=== PATIENT | male | born 1940 | race Caucasian/White ===

== ENCOUNTER → 2017-04-25 | Outpatient (CLI) | payer OTHER | LOC: BHFA 12:00 | PROVIDERS: ATTEND Internal Medicine | DX: I35.9 Nonrheumatic aortic valve disorder, unspecified (principal); I05.9 Rheumatic mitral valve disease, unspecified ==

== ENCOUNTER → 2017-05-03 | Outpatient (CLI) | payer OTHER ==
[~2017-05-03] MED LIST: IOPAMIDOL (ISOVUE-370) 150 ML BTL IV ONE
== END ==
LOC: FIMAGING 13:45
PROVIDERS: ATTEND Thoracic Surgery (Cardiothoracic Vascular Surgery)
DX: K44.9 Diaphragmatic hernia without obstruction or gangrene (principal); K40.90 Unilateral inguinal hernia, without obstruction or gangrene, not specified as recurrent; I70.0 Atherosclerosis of aorta; I70.1 Atherosclerosis of renal artery; I77.1 Stricture of artery; I25.10 Atherosclerotic heart disease of native coronary artery without angina pectoris; J90 Pleural effusion, not elsewhere classified
CPT/HCPCS: 71275; 74174; Q9967

== ENCOUNTER 2017-05-07 23:04 | Inpatient (IN) | payer OTHER ==
--- NOTE | 2017-05-07 23:21 | EDPHY ---
H & P Stated Complaint: due for card cath tomorrow, due for tavr 3.6, worsening sob x 2 days Time Seen by Provider: 05/07/17 23:10 HPI/ROS: HPI CHIEF COMPLAINT: Shortness of breath HISTORY OF PRESENT ILLNESS: Patient very pleasant 69-year-old male who presents emergency room shortness of breath. Patient resides in [place]. Patient is followed by Dr. Waterman, who presents to the emergency room because he has been having worsening shortness of breath. Patient states that he staying at a local hotel as he is due to get a cardiac catheterization tomorrow to make sure does not have significant coronary artery disease before undergoing a TAVR. He typically wears 2-4 L nasal cannula of oxygen however does not have his oxygen locally here in his hotel he comes in with worsening shortness of breath or dyspnea on exertion. He is unable to lay flat. He denies any significant lower extremity edema. He denies any chest pain. Only complaint shortness of breath dyspnea on exertion and PND. Past Medical History: BPH, hypertension, aortic insufficiency Past Surgical History: aortic valve replacement Social History: Denies drugs alcohol tobacco products. Resides in [place]. Family History: Noncontributory CT surgeon: Dr. Columba ACOSTA REVIEW OF SYSTEMS: A comprehensive 10 point review of systems is otherwise negative aside from elements mentioned in the history of present illness. Exam Constitutional appears well nontoxic no acute distress triage nursing summary reviewed, vital signs reviewed, awake/alert. Eyes normal conjunctivae and sclera, EOMI, PERRLA. HENT normal inspection, atraumatic, moist mucus membranes, no epistaxis, neck supple/ no meningismus, no raccoon eyes. Respiratory decreased breath sounds bilaterally, somewhat labored, dyspnea on exertion, PND. Cardiovascular rate normal, regular rhythm, no edema, distal pulses normal. Gastrointestinal soft, non-tender, no rebound, no guarding, normal bowel sounds, no distension, no pulsatile mass. Genitourinary no CVA tenderness. Musculoskeletal no midline vertebral tenderness, full range of motion, no calf swelling, no tenderness of extremities, no meningismus, good pulses, neurovascularly intact. Skin pink, warm, & dry, no rash, skin atraumatic. Neurologic awake, alert and oriented x 3, AAOx3, moves all 4 extremities equally, motor intact, sensory intact, CN II-XII intact, normal cerebellar, normal vision, normal speech. Psychiatric normal mood/affect. Heme/Lymph/Immune no lymphadenopathy. Differential Diagnosis: Includes but is not limited to in a particular order aortic insufficiency, congestive heart failure, pulmonary edema, pneumonia, pneumothorax, decompensated heart failure, PE, HI Medical Decision Making: Plan for this patient full patient monitor IV establishment blood draw, obtain EKG and chest x-ray, placed on supplemental oxygen. Most likely admit the patient to the hospital is due for cardiac catheterization tomorrow. Re-evaluation: EKG interpretation by me on record in [facility] system. Impression time of EKG 2326, sinus rhythm rate of 95 first-degree AV block MN interval 236, feces present. Left anterior fascicular block, LVH, no ST elevation. 1213AM: Patient's elevated troponin elevated BNP, chest x-ray consistent with heart failure. I have ordered him 40 mg IV Lasix. He is hemodynamically stable without any chest pain at this time. Patient be admitted to PCU for decompensated heart failure. 1223AM: Spoke with Dr. Waterman, aware that the patient is being admitted. Spoke with the hospitalist service Dr. Hurd, agrees to admit this patient for decompensated heart failure. Source: Patient - Medical/Surgical History Hx Asthma: No Hx Chronic Respiratory Disease: No Hx Diabetes: No Hx Cardiac Disease: Yes Hx Renal Disease: No Hx Cirrhosis: No Hx Alcoholism: No Hx HIV/AIDS: No Hx Splenectomy or Spleen Trauma: No Other PMH: mitral and aortic valve replacement, hernia repair, bilat cataract surg, surg R shoulder, bph, hyperlipidemia - Social History Smoking Status: Former smoker Constitutional: Initial Vital Signs Temperature (C) 36.8 C 05/07/17 23:09 Heart Rate 51 L 05/07/17 23:09 Respiratory Rate 18 05/07/17 23:09 Blood Pressure 145/65 H 05/07/17 23:09 O2 Sat (%) 93 05/07/17 23:09 O2 Delivery Mode Nasal Cannula O2 (L/minute) 3 Allergies/Adverse Reactions: No Known Allergies Allergy (Verified 05/07/17 23:18) Home Medications: Medication Instructions Recorded Aspirin [Aspirin 81mg (*)] 81 mg PO DAILY 05/01/17 Furosemide [Lasix 20 MG (*)] 20 mg PO DAILY 05/01/17 [place]-3 Fatty Acids [Fish Oil 1000 1,000 mg PO DAILY 05/01/17 mg (*)] Potassium Cl [Klor-Con] 10 meq PO DAILY 05/01/17 Simvastatin [Zocor] 10 mg PO HS 05/01/17 Tamsulosin HCl [Flomax 0.4 MG (*)] 0.4 mg PO DAILY 05/01/17 Medical Decision Making - Data Points Laboratory Results: Laboratory Results 05/08/17 03:24 05/08/17 03:24 Medications Given: Pravastatin Sodium (Pravachol) 20 mg PO [facility] Stop: 11/04/17 20:59 Last Admin: 05/08/17 21:12 Dose: 20 mg Discontinued Medications Enoxaparin Sodium (Lovenox) 40 mg SC DAILY [facility] Stop: 11/04/17 08:59 Last Admin: 05/08/17 08:42 Dose: Not Given Furosemide (Lasix Injection) 40 mg IVP [facility] Stop: 05/08/17 00:13 Last Admin: 05/08/17 00:43 Dose: 40 mg Departure - Departure Disposition: [facility] Acute Clinical Impression: Acute decompensated heart failure Condition: Fair
--- NOTE | 2017-05-07 23:29 | CPEKG ---
Heart Rate: 95 RR Interval: 632 P-R Interval: 236 QRSD Interval: 92 QT Interval: 376 QTC Interval: 473 P [place]: 68 QRS [place]: -47 T Wave [place]: 95 EKG Severity - ABNORMAL ECG - EKG Impression: SINUS RHYTHM EKG Impression: PAIRED VENTRICULAR PREMATURE COMPLEXES EKG Impression: FIRST DEGREE AV BLOCK EKG Impression: LEFT ANTERIOR FASCICULAR BLOCK EKG Impression: LEFT VENTRICULAR HYPERTROPHY Electronically Signed By: Chapo Magana 08-May-2017 06:47:17
[2017-05-07 23:47] LABS: PLATELET COUNT 108 10^3/uL (150-400)
[2017-05-07 23:56] LABS: INR 1.02 (0.83-1.16); PROTIME(PATIENT) 13.6 SEC (12.0-15.0)
[2017-05-07 23:58] LABS: CREATINE KINASE 67 IU/L (0-224)
[2017-05-08] MEDS ORDERED: FUROSEMIDE 40 MG/4 ML VIAL IVP ONE (00:12)
[2017-05-08] MEDS ORDERED: ONDANSETRON 4 MG/2 ML VIAL IVP PRN (00:21)
[2017-05-08] MEDS ORDERED: ACETAMINOPHEN 325 MG TAB PO PRN (00:21)
[2017-05-08] MEDS ORDERED: ONDANSETRON DISINTEGRATING 4 MG TAB PO PRN (00:21)
--- NOTE | 2017-05-08 01:00 | PDGENHP ---
History and Physical - Chief Complaint Shortness of breath - History of Present Illness 77 yo M w/ hx of bioprosthetic MV and AV placed in 2010 presents with shortness of breath. Patient has had several months of progressive LUCIO. Over the last 3 days he has developed severe orthopnea that makes it difficult to sleep. Tonight the symptoms became so bothersome that he came to the ED for evaluation. Recent cardiac evaluation has revealed severe AR/AI of his bioprosthetic AV, which is likely responsible for heart failure symptoms seen today. He is currently undergoing TVAR evaluation, which may take place as soon as this coming week. He had a planned catheterization and BRITTANEY for tomorrow. History Information - Allergies/Home Medication List Allergies/Adverse Reactions: No Known Allergies Allergy (Verified 05/07/17 23:18) Home Medications: Aspirin [Aspirin 81mg (*)] 81 mg PO DAILY 05/01/17 [Last Taken Unknown] Furosemide [Lasix 20 MG (*)] 20 mg PO DAILY 05/01/17 [Last Taken Unknown] [place]-3 Fatty Acids [Fish Oil 1000 mg (*)] 1,000 mg PO DAILY 05/01/17 [Last Taken Unknown] Potassium Cl [Klor-Con] 10 meq PO DAILY 05/01/17 [Last Taken Unknown] Simvastatin [Zocor] 10 mg PO HS 05/01/17 [Last Taken Unknown] Tamsulosin HCl [Flomax 0.4 MG (*)] 0.4 mg PO DAILY 05/01/17 [Last Taken Unknown] I have personally reviewed and updated: family history, medical history - Past Medical History CHF Additional medical history: Pulmonary hypertension - Surgical History Additional surgical history: Bioprosthetic AV and MV replacement in 2010 - Family History Positive for: cancer - Social History Smoking Status: Former smoker Review of Systems Review of Systems: ROS: 10pt was reviewed & negative except for what was stated in HPI & below Physical Exam Physical Exam: Temp Pulse Resp BP Pulse Ox 36.8 C 51 L 18 145/65 H 93 05/07/17 23:09 05/07/17 23:09 05/07/17 23:09 05/07/17 23:09 05/07/17 23:09 Constitutional: no apparent distress, not in pain Eyes: PERRL, EOMI Ears, Nose, Mouth, Throat: moist mucous membranes, no oral mucosal ulcers Cardiovascular: regular rate and rhythym, systolic murmur, diastolic murmur, JVD (JVP 4 cm above clavicle at 60 degrees), No edema Respiratory: no respiratory distress, inspiratory crackles (Bibasilar) Gastrointestinal: normoactive bowel sounds, soft, non-tender abdomen Skin: warm, normal color Musculoskeletal: full muscle strength, no muscle tenderness Neurologic: AAOx3, CN II-XII Intact Psychiatric: interacting appropriately, not anxious Lab Data & Imaging Review 05/07/17 23:33 05/07/17 23:33 WBC 5.92 10^3/uL (3.80-9.50) 05/07/17 23: RBC 4.09 10^6/uL (4.40-6.38) L 05/07/17 23: Hgb 13.1 g/dL (13.7-17.5) L 05/07/17 23:33 Hct 39.2 % (40.0-51.0) L 05/07/17 23: MCV 95.8 fL (81.5-99.8) 05/07/17 23: MCH 32.0 pg (27.9-34.1) 05/07/17 23: MCHC 33.4 g/dL (32.4-36.7) 05/07/17 23: RDW 13.6 % (11.5-15.2) 05/07/17 23: Plt Count 108 10^3/uL (150-400) L 05/07/17 23: MPV 13.0 fL (8.7-11.7) H 05/07/17 23: Neut % (Auto) 67.2 % (39.3-74.2) 05/07/17 23: Lymph % (Auto) 23.3 % (15.0-45.0) 05/07/17 23: Barnes % (Auto) 5.7 % (4.5-13.0) 05/07/17 23:33 Eos % (Auto) 2.9 % (0.6-7.6) 05/07/17 23:33 Baso % (Auto) 0.7 % (0.3-1.7) 05/07/17 23: Nucleat RBC Rel Count 0.0 % (0.0-0.2) 05/07/17 23:33 Absolute Neuts (auto) 3.98 10^3/uL (1.70-6.50) 05/07/17 23:33 Absolute Lymphs (auto) 1.38 10^3/uL (1.00-3.00) 05/07/17 23:33 Absolute Monos (auto) 0.34 10^3/uL (0.30-0.80) 05/07/17 23: Absolute Eos (auto) 0.17 10^3/uL (0.03-0.40) 05/07/17 23:33 Absolute Basos (auto) 0.04 10^3/uL (0.02-0.10) 05/07/17 23: Absolute Nucleated RBC 0.00 10^3/uL (0-0.01) 05/07/17 23: Immature Gran % 0.2 % (0.0-1.1) 05/07/17 23: Immature Gran # 0.01 10^3/uL (0.00-0.10) 05/07/17 23:33 PT 13.6 SEC (12.0-15.0) 05/07/17 23: INR 1.02 (0.83-1.16) 05/07/17 23:33 APTT 26.8 SEC (23.0-38.0) 05/07/17 23:33 Sodium 141 mEq/L (135-145) 05/07/17 23: Potassium 4.3 mEq/L (3.5-5.2) 05/07/17 23: Chloride 108 mEq/L (97-110) 05/07/17 23: Carbon Dioxide 24 mEq/l (22-31) 05/07/17 23:33 Anion Gap 9 mEq/L (8-16) 05/07/17 23:33 BUN 25 mg/dL (7-23) H 05/07/17 23:33 Creatinine 0.9 mg/dL (0.7-1.3) 05/07/17 23:33 Estimated GFR > 60 05/07/17 23:33 Glucose 105 mg/dL (70-100) H 05/07/17 23:33 Calcium 9.4 mg/dL (8.5-10.4) 05/07/17 23:33 Magnesium 2.1 mg/dL (1.6-2.3) 05/07/17 23:33 Total Bilirubin 0.6 mg/dL (0.1-1.4) 05/07/17 23:33 Conjugated Bilirubin 0.3 mg/dL (0.0-0.5) 05/07/17 23:33 Unconjugated Bilirubin 0.3 mg/dL (0.0-1.1) 05/07/17 23:33 AST 34 IU/L (17-59) 05/07/17 23:33 ALT 52 IU/L (21-72) 05/07/17 23:33 Alkaline Phosphatase 85 IU/L (38-126) 05/07/17 23:33 Creatine Kinase 67 IU/L (0-224) 05/07/17 23:33 CK-MB (CK-2) Fraction 2.24 ng/mL (0.00-3.19) 05/07/17 23:33 Troponin I 0.046 ng/mL (0.000-0.034) H 05/07/17 23:33 NT-Pro-B Natriuret Pep 7490 pg/mL (0-450) H 05/07/17 23:33 Total Protein 6.4 g/dL (6.3-8.2) 05/07/17 23:33 Albumin 3.9 g/dL (3.5-5.0) 05/07/17 23:33 Imaging Review: Imaging Impressions Chest X-Ray 05/07/17 23:21 Impression: Mild congestive heart failure. Visualized and Interpreted Chest x-ray results: Yes Visualized and Interpreted EKG results: Yes EKG additional interpertation: LAFB, PVCs, NSR Assessment & Plan Assessment: 77 yo M w/ hx of bioprosthetic MV and AV with recently developed severe /AI presents with decompensated heart failure. Plan: 1. Acute on chronic decompensated heart failure - I suspect his symptoms (LUCIO, orthopnea) are mostly due to his aortic valve disease (severe /AI). He was recently started on furosemide 20 mg PO qD by Dr. Waterman but his symptoms have progressed regardless. He does have some signs of volume overload (vascular congestion on CXR, elevated JVP) but overall this appears mild and it seems he has a narrow functional window in terms of volume due to his poor valve function. - S/p furosemide 40 mg IV x1 in ED - Will hold off on additional dosing and monitor response closely noting AV disease - Dr. Waterman consulted, appreciate assistance 2. Severe /AI - In setting of bioprosthetic valve placed in 2010. He is currently being evaluated for TAVR. - Will maintain NPO for planned catheterization tomorrow 3. Bioprosthetic MV - Mild MR noted on recent TTE. 4. Indeterminate troponin - No chest pain to suggest ACS; most likely demand ischemia in setting of AV disease and heart failure. - Monitor on telemetry, trend cardiac enzymes 5. BPH - On tamsulosin 6. HLD - On simvastatin Diet - NPO @ MN Code - Full Ppx - LMWH Dispo - Admit under observation status for now, may need to be converted to inpatient if decision is made to perform TAVR during this admission
[2017-05-08 04:08] LABS: PLATELET COUNT 104 10^3/uL (150-400)
[2017-05-08] MEDS ORDERED: ENOXAPARIN 40 MG/0.4 ML SYR SC SCH (09:00)
[2017-05-08] MEDS ORDERED: IOPAMIDOL (ISOVUE-370) 150 ML BTL IV ONE (11:17)
[2017-05-08] MEDS ORDERED: LIDOCAINE 1% 300 MG/30 ML SDV ONE (11:17)
--- NOTE | 2017-05-08 11:21 | PDANEPAE ---
ANE Past Medical History - Pulmonary History Hx Oxygen in Use at Home: Yes O2 in Use at Home (L/minute): 2l Hx Sleep Apnea: No - Endocrine History Hx Diabetes: No - Chronic Pain History Chronic Pain: No ANE Review of Systems Review of Systems: ANE Patient History - Allergies Allergies/Adverse Reactions: No Known Allergies Allergy (Verified 05/07/17 23:18) - Home Medications Home Medications: Aspirin [Aspirin 81mg (*)] 81 mg PO DAILY 05/01/17 [Last Taken Unknown] Furosemide [Lasix 20 MG (*)] 20 mg PO DAILY 05/01/17 [Last Taken Unknown] [place]-3 Fatty Acids [Fish Oil 1000 mg (*)] 1,000 mg PO DAILY 05/01/17 [Last Taken Unknown] Potassium Cl [Klor-Con] 10 meq PO DAILY 05/01/17 [Last Taken Unknown] Simvastatin [Zocor] 10 mg PO HS 05/01/17 [Last Taken Unknown] Tamsulosin HCl [Flomax 0.4 MG (*)] 0.4 mg PO DAILY 05/01/17 [Last Taken Unknown] - Smoking Hx Smoking Status: Former smoker ANE Labs/Vital Signs - Labs Result Diagrams: 05/08/17 03:24 05/08/17 03:24 - Vital Signs Blood Pressure: 112/64 Heart Rate: 88 Respiratory Rate: 15 O2 Sat (%): 96 Weight: 84.822 kg ANE Physical Exam - Airway Neck exam: FROM - Pulmonary Pulmonary: no respiratory distress - Cardiovascular Cardiovascular: regular rate and rhythym - ASA Status ASA Status: III ANE Anesthesia Plan Total IV Anesthesia: Yes
--- NOTE | 2017-05-08 11:21 | PDHPUP ---
History & Physical Update H&P update statement: This history and physical update is based on an assessment of the patient which was completed after admission or registration (within 24 hours), but prior to the surgery/procedure. H&P update: H&P reviewed & patient examined, no change in patient's condition since H&P completed
[2017-05-08] MEDS ORDERED: fentaNYL 100 MCG/2 ML INJ ONE (11:56)
--- NOTE | 2017-05-08 12:09 | PDPROPOC ---
Sedation Plan of Care Sedation Plan of Care: mental status noted, patient educated of risks, benefits , alternatives, patient can tolerate sedation ASA Classification: ASA 2 Planned drugs: fentanyl, midazolam Mallampati Score: Class 2 Mallampati Reference Image: Patient passed 3-3-2 rule?: Yes
--- NOTE | 2017-05-08 13:32 | ASMTCMCOM ---
CM Note CM Note Notes: Pt from [facility], had scheduled heart cath and BRITTANEY here in [place] and was staying at [facility] but ended up coming in through ED w/SOB. Pt having heart cath and BRITTANEY today and will be evaluated for TVAR. CM will assess dc needs post-op. Pt lives at home w/. Date Signed: 05/08/2017 01:31 PM Electronically Signed By:Katharina Salazar RN
[2017-05-08] MEDS ORDERED: fentaNYL 100 MCG/2 ML INJ IVP PRN (13:51)
[2017-05-08] MEDS ORDERED: ALBUTEROL 3 ML DEYVIAL IH PRN (13:51)
[2017-05-08] MEDS ORDERED: NALOXONE HCL 0.4 MG/ML INJ IVP PRN (13:51)
--- NOTE | 2017-05-08 13:52 | POSTANESTH ---
Post Anesthetic Evaluation Cardiovascular Status: Similar to Pre-Op Cond Respiratory Status: Similar to Pre-op Cond. Level of Consciousness/Mental Status: Alert and Oriented Pain Control: Adequate, Prn Tx Ordered Nausea/Vomiting Control: Adequate, Prn Tx Ordered Complications Possibly Related to Anesthesia: None Noted
[2017-05-08] MEDS ORDERED: ATROPINE SULFATE 1 MG/10 ML SYR IVP PRN (15:30)
[2017-05-08] MEDS ORDERED: NITROGLYCERIN 0.4 MG BTL SL PRN (15:30)
--- NOTE | 2017-05-08 17:02 | HOSPPROG ---
Hospitalist Progress Note Assessment/Plan: * Acute on chronic CHF -s/p IV lasix * Severe -to TAVR tomorrow * Bioprosthetic MV * Troponin elevation -cardiac cath reportedly clean * BPH - flomax Subjective: No complaints, SOB resolved Objective: Vital Signs Temp Pulse Resp BP Pulse Ox 36.8 C 73 16 137/64 H 94 05/08/17 16:31 05/08/17 16:31 05/08/17 16:31 05/08/17 16:31 05/08/17 16:31 PT 13.6 SEC (12.0-15.0) 05/07/17 23:33 INR 1.02 (0.83-1.16) 05/07/17 23:33 CXR viewed, my personal interpretation is - mild CHF tele - NSR Laboratory Tests 05/07/17 05/08/17 23:33 03:24 Creatinine 1.0 Troponin I 0.046 H 0.047 H NT-Pro-B Natriuret Pep 7490 H - Physical Exam Constitutional: no apparent distress, appears nourished, not in pain Cardiovascular: regular rate and rhythym, JVD, No edema Respiratory: no respiratory distress, no rales or rhonchi, clear to auscultation Gastrointestinal: soft, non-tender abdomen, no palpable masses, No tenderness, No ascites, No guarding, No rebound, No distension Skin: no rashes or abrasions, no fluctuance, no induration Neurologic: AAOx3, sensation intact bilaterally Psychiatric: interacting appropriately, not anxious, not encephalopathic, thought process linear ICD10 Worksheet Patient Problems: Problems Problem Status Onset Acute decompensated heart failure Acute
[2017-05-08] MEDS ORDERED: NON-FORMULARY NEW DRUG (Simvastatin [Zocor] 10 MG) PO SCH (21:00)
[2017-05-08] MEDS: PRAVASTATIN SODIUM 20 MG TAB PO SCH (21:12)
[2017-05-09] MEDS ORDERED: PROTAMINE SULFATE 50 MG/5 ML VIAL IVP ONE (06:25)
[2017-05-09] MEDS ORDERED: CALCIUM CHLORIDE 1 GM/10 ML INJ ONE ×2 (06:26→06:28)
[2017-05-09] MEDS ORDERED: NA BICARBONATE 50 MEQ/50 ML VIAL ONE (06:26)
[2017-05-09] MEDS ORDERED: MILRINONE/DEXTROSE/100 ML BAG IV ONE (06:26)
[2017-05-09] MEDS ORDERED: HEPARIN 10,000 UNIT/10 ML MDV (1,000 UNIT/ML) ONE ×2 (06:26→06:28)
[2017-05-09] MEDS ORDERED: ceFAZolin 1 GM VIAL ONE (06:27)
[2017-05-09] MEDS ORDERED: DOPamine/DEXTROSE/250 ML BAG IV ONE (06:27)
[2017-05-09] MEDS ORDERED: ALBUMIN 5% 250 ML BOTTLE IV ONE (06:27)
[2017-05-09] MEDS ORDERED: niCARdipine/NACL/200 ML BAG IV ONE (06:27)
[2017-05-09] MEDS ORDERED: AMIODARONE HCL 150 MG/3 ML VIAL ONE ×2 (06:27→06:28)
[2017-05-09] MEDS ORDERED: ADENOSINE 6 MG/2 ML VIAL ONE (06:27)
[2017-05-09] MEDS ORDERED: methylPREDNISolone SOD SUCC 1 GM/8 ML VIAL ONE (06:28)
[2017-05-09] MEDS ORDERED: CITRATE DEXTROSE SOLN 500 ML BAG ONE (06:28)
[2017-05-09] MEDS ORDERED: LIDOCAINE 2% 100 MG/5 ML SYR ONE (06:28)
[2017-05-09] MEDS ORDERED: MAGNESIUM SULFATE 1 GM/2 ML VIAL ONE (06:28)
[2017-05-09] MEDS ORDERED: IOPAMIDOL (ISOVUE-370) 150 ML BTL IV ONE (06:52)
--- NOTE | 2017-05-09 06:52 | PDANEPAE ---
ANE History of Present Illness here for TAVR ANE Past Medical History - Cardiovascular History Hx Hypertension: Yes Hx Arrhythmias: No Hx Chest Pain: No Hx Coronary Artery / Peripheral Vascular Disease: No Hx CHF / Valvular Disease: Yes Hx Palpitations: No - Pulmonary History Hx COPD: No Hx Asthma/Reactive Airway Disease: No Hx Recent Upper Respiratory Infection: No Hx Oxygen in Use at Home: Yes O2 in Use at Home (L/minute): 2l Hx Sleep Apnea: No Sleep Apnea Screening Result - Last Documented: Positive - Endocrine History Hx Diabetes: No Hypothyroid: No Obesity: mild - Renal History Hx Renal Disorders: No - Liver History Hx Hepatic Disorders: No - Neurological & Psychiatric Hx Hx Neurological and Psychiatric Disorders: No - Chronic Pain History Chronic Pain: No ANE Review of Systems Review of systems is: negative Review of Systems: - Exercise capacity Exercise capacity: <4 METS ANE Patient History - Allergies Allergies/Adverse Reactions: No Known Allergies Allergy (Verified 05/07/17 23:18) - Home Medications Home medications: home medication list seen and reviewed Home Medications: Aspirin [Aspirin 81mg (*)] 81 mg PO DAILY 05/01/17 [Last Taken Unknown] Furosemide [Lasix 20 MG (*)] 20 mg PO DAILY 05/01/17 [Last Taken Unknown] [place]-3 Fatty Acids [Fish Oil 1000 mg (*)] 1,000 mg PO DAILY 05/01/17 [Last Taken Unknown] Potassium Cl [Klor-Con] 10 meq PO DAILY 05/01/17 [Last Taken Unknown] Simvastatin [Zocor] 10 mg PO HS 05/01/17 [Last Taken Unknown] Tamsulosin HCl [Flomax 0.4 MG (*)] 0.4 mg PO DAILY 05/01/17 [Last Taken Unknown] - NPO status NPO Status: no food or drink >8 hours NPO Since - Liquids (Date): 05/08/17 NPO Since - Liquids (Time): 23:45 NPO Since - Solids (Date): 05/08/17 NPO Since - Solids (Time): 18:55 - Anes Hx Anes Hx: no prior problems - Smoking Hx Smoking Status: Former smoker ANE Labs/Vital Signs - Labs Result Diagrams: 05/08/17 03:24 05/08/17 03:24 - Vital Signs Vital Signs: reviewed preoperatively; see RN documention for details Blood Pressure: 111/49 Heart Rate: 70 Respiratory Rate: 18 O2 Sat (%): 97 Height: 170.18 cm Weight: 84.822 kg ANE Physical Exam - Airway Neck exam: FROM Mallampati Score: Class 1 - Pulmonary Pulmonary: no respiratory distress - ASA Status ASA Status: IV ANE Anesthesia Plan Anesthesia Plan: general endotracheal anesthesia
--- NOTE | 2017-05-09 07:04 | PDCARPN ---
Cardiology Progress Note Chief Complaint: SOB Assessment/Plan: Assessment: bAVR degeneration HF prior bMVR Plan: 05/09/17 07:01 BRITTANEY/cath shows severe bAVR disease no CAD Plan for TAVR ELVIS procedure today I have explained the risks/possible complications of the procedure to Prem, including bleeding, infection, stroke, and possible and both the patient and his family would like to proceed Prem had already been seen by two CT surgeons (Dr. Waterman and Keely) who deemed him a suitable candidate for TAVR Subjective: stable, less SOB Reviewed/Discussed With: multidisciplinary team Time Spent With Patient: 25 min Objective: Vital Signs (8 Hrs) Temp Pulse Resp BP Pulse Ox 05/09/17 06:52 70 18 111/49 L 97 05/09/17 06:33 36.7 C 70 18 111/49 L 97 05/09/17 04:00 61 Intake/Output (24 Hrs) 05/08/17 05/09/17 05/10/17 05:59 05:59 05:59 Intake Total 300 Output Total 550 200 Balance -250 -200 Intake: Oral (ml) 300 Output: Urine (ml) 550 200 Urinal 550 200 Other: Weight 84.822 kg Intake Quantity Yes Sufficient Number of Voids Toilet 1 Urinal 1 Result Diagrams: 05/08/17 03:24 05/08/17 03:24 - Physical Exam Constitutional: no apparent distress Eyes: PERRL Ears, Nose, Mouth, Throat: moist mucous membranes Cardiovascular: regular rate and rhythm, systolic murmur Peripheral Pulses: 1+: femoral (R), femoral (L) Respiratory: clear to auscultate bilat Gastrointestinal: normoactive bowel sounds Genitourinary: no suprapubic tenderness Skin: no rashes Musculoskeletal: no muscular tenderness Psychiatric: cooperative Lymph, Heme, Immunologic: no lymphadenopathy ICD10 Worksheet Patient Problems: Problems Problem Status Onset Acute decompensated heart failure Acute
[2017-05-09] MEDS ORDERED: ceFAZolin 2 GM/SWFI 2 GM/20 ML SYR IVP ONE (07:15)
[2017-05-09] MEDS ORDERED: PROPOFOL 200 MG/20 ML VIAL ONE (07:19)
[2017-05-09] MEDS ORDERED: fentaNYL 100 MCG/2 ML INJ ONE (07:21)
[2017-05-09] MEDS ORDERED: MIDAZOLAM 2 MG/2 ML VIAL ONE (07:22)
[2017-05-09] MEDS ORDERED: ASPIRIN 81 MG CHEWABLE TAB PO SCH (09:00)
[2017-05-09] MEDS ORDERED: NITROGLYCERIN 50 MG/10 ML SDV IV ONE (09:24)
[2017-05-09] MEDS ORDERED: hydrALAZINE 20 MG/ML VIAL IVP PRN (09:25)
[2017-05-09] MEDS ORDERED: HYDROmorphONE/DILAUDID 2 MG/ML INJ IVP PRN (09:25)
[2017-05-09] MEDS ORDERED: IBUPROFEN 800 MG TAB PO PRN (09:25)
--- NOTE | 2017-05-09 09:55 | PDMN ---
Medical Necessity Medical necessity: change to IP; los>2mn for acute on chronic CHF rt severe AR/ AI of bioprosthetic AV; requires cath /BRITTANEY pre TAVR 05/09/17; per order and progress note 05/08/17
--- NOTE | 2017-05-09 10:22 | ECHO ---
[email or web address] [place] [id number] Main: [phone] Fax: Transesophageal Echocardiography Name: DARIO HUGHES MR#: [id number] Study Date: 05/09/2017 Study Time: 07:36 AM Date of : 1940 Age: 77 year(s) Height: ( ) Weight: ( ) BSA: Gender: Male Examination: BRITTANEY Indication: TAVR Image Quality: Contrast: Requested by: Gama Hurd Heart Rate: Rhythm: BP: / Procedure Staff Airline Reservationist: Harsha Dorman RDCS Reading Physician: Sheeba Mar MD Requesting Provider: Lux Duarte BRITTANEY Exam Details Measurements: Chambers Valvular Assessment AV/MV Valvular Assessment TV/PV Normal Normal Normal Name Value Range Name Value Range Name Value Range LVOTd 2.3 cm 2.3 cm mm AV meanP mmHg ( - ) MV meanP mmHg ( - ) Additional Measurements: Valvular Assessment AV/MV Name Value MV VTI: 52.40 cm Findings: Exam Comments: Baseline - EF 40% no effusion, bioprosthetic MV and Aortic valve, Severe AI and of the bioprostetic valve. EF 40% 2/3 deployed, Post deployment the Vmax of the aortic valve 3.6 m/s with a Mean PG of 32 mmHg. No pericardial effusion. No impingment of the fred valve. Mean mitral gradient 6-8 mmHg pre and post TAVR. l1n Patient: DARIO HUGHES Study Date: 05/09/2017 Page 1 of 2 07:36 AM (No Signature Object) Patient: DARIO HUGHES Study Date: 05/09/2017 Page 2 of 2 07:36 AM [id number]
--- NOTE | 2017-05-09 10:24 | ECHO ---
[email or web address] [address] [address] Main: [phone] Fax: Transesophageal Echocardiography Name: DARIO HUGHES MR#: [id number] Study Date: 05/08/2017 Study Time: 12:07 PM Date of : 1940 Age: 77 year(s) Height: ( ) Weight: ( ) BSA: Gender: Male Examination: BRITTANEY Indication: Bioprothetic Ao and MV Image Quality: Contrast: Requested by: Gama Hurd Heart Rate: Rhythm: BP: / Procedure Staff Imaging System Administrator: Harsha Dorman RDCS Reading Physician: Sheeba Mar MD Requesting Provider: Lux Duarte BRITTANEY Exam Details Conclusions: EF is estimated at 40%. A bioprosthetic mitral valve is in place.. The bioprosthetic mitral valve leaflets move normally.. The aortic valve is a bioprosthesis. The Aortic bioprosthetic valve leaflets are moderately thinkened with severe prosthesis regurgitation and severe aortic valve mean gradient of near 70 mmHg. There appears to be a torn bioprosthetic aortic valve.. Moderate tricuspid regurgitation is present. Measurements: Chambers Valvular Assessment AV/MV Valvular Assessment TV/PV Normal Normal Normal Name Value Range Name Value Range Name Value Range AV Vmax: 4.97 m/s (1 m/s-1.7 m/s) AV maxP mmHg ( - ) AV meanP mmHg ( - ) AR (PHT): 395 ms ( - ) MV E Vmax: 1.70 m/s ( - ) MV meanP mmHg ( - ) Additional Measurements: Valvular Assessment AV/MV Patient: DARIO HUGHES Study Date: 05/08/2017 Page 1 of 2 12:07 PM Name Value MV VTI: 50.70 cm AR Vmax: 4.34 cm/s Findings: Left Ventricle: EF is estimated at 40%. Mitral Valve: A bioprosthetic mitral valve is in place.. The bioprosthetic mitral valve leaflets move normally.. Aortic Valve: The aortic valve is a bioprosthesis. The Aortic bioprosthetic valve leaflets are moderately thinkened with severe prosthesis regurgitation and severe aortic valve mean gradient of near 70 mmHg. There appears to be a torn bioprosthetic aortic valve.. Tricuspid Valve: Moderate tricuspid regurgitation is present. l1n (No Signature Object) Patient: DARIO HUGHES Study Date: 05/08/2017 Page 2 of 2 12:07 PM [id number]
[2017-05-09] MEDS: TAMSULOSIN HCL 0.4 MG CAP PO SCH (10:55)
[2017-05-09] MEDS: FUROSEMIDE 20 MG TAB PO SCH (10:55)
[2017-05-09] MEDS: POTASSIUM CL 10 MEQ TAB PO SCH (10:55)
--- NOTE | 2017-05-09 13:26 | HOSPPROG ---
Hospitalist Progress Note Assessment/Plan: * Acute on chronic systolic CHF - EF 40% -s/p IV lasix * Critical - s/p TAVR * Bioprosthetic MV * Troponin elevation -cardiac cath reportedly clean * BPH - flomax Subjective: No complaints, no SOB with lying flat Objective: Vital Signs Temp Pulse Resp BP Pulse Ox 36.7 C 76 24 H 128/72 H 95 05/09/17 12:00 05/09/17 13:00 05/09/17 13:00 05/09/17 13:00 05/09/17 13:00 05/08/17 05/09/17 05/10/17 05:59 05:59 05:59 Intake Total 300 Output Total 550 400 Balance -250 -400 PT 13.6 SEC (12.0-15.0) 05/07/17 23:33 INR 1.02 (0.83-1.16) 05/07/17 23:33 - Physical Exam Constitutional: no apparent distress, appears nourished, not in pain Cardiovascular: regular rate and rhythym, systolic murmur, No JVD, No edema Respiratory: no respiratory distress, no rales or rhonchi, clear to auscultation Gastrointestinal: normoactive bowel sounds, soft, non-tender abdomen, no palpable masses Skin: no rashes or abrasions, no fluctuance, no induration Neurologic: AAOx3, sensation intact bilaterally Psychiatric: interacting appropriately, not anxious, not encephalopathic, thought process linear ICD10 Worksheet Patient Problems: Problems Problem Status Onset Acute decompensated heart failure Acute
--- NOTE | 2017-05-09 14:14 | CPIP ---
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 CO-SURGEONS: 1. Dr. Jaciel Waterman. 2. Dr. Sheeba Mar. 3. Dr. Sanit Beckford. PROCEDURES: 1. Nonselective right groin sheathogram. 2. Nonselective left groin sheathogram. 3. 6-Khmer sheath in left common femoral vein with temporary wire placed in right ventricle. 4. Left heart catheterization. 5. Placement of Medtronic CoreValve R 23 mm valve via the transfemoral route. 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 Subsequent, the patient had been deemed to be a high-risk candidate by Dr. Peter pinzon and Dr. Allred from CT surgery. The patient was consented for valve to valve TAVR. DESCRIPTION OF PROCEDURE: After informed consent obtained, the patient was brought to [facility] where the patient was electively intubated. BRITTANEY performed by Dr. Sheeba Mar. Patient was administered 2 g Ancef prior to the start of the case. A 6-Khmer sheath was placed in the left common femoral vein with temporary pacemaker wire placed in the right ventricle. 6-Khmer sheath in left common femoral artery verified angiographically, upsized to an 8-Khmer sheath. 6-Khmer sheath in right common femoral artery upsized to 18-Khmer Oakley riggins th after triple Perclose placement. Next, aortic valve was crossed with AL1 catheter and a straight stiff Glidewire switched out for a pi gtail catheter. The patient was administered 8000 heparin IV. Hemodynamics were obtained, which showe d EDP approximately 20 mmHg and a mean gradient of 25 mmHg between the LV and aorta. Confida wire was placed in the LV. The catheter was removed. We then proceeded with placement of Medtronic CoreValve R 23 mm valve. This was deployed successfully across the valve. After deployment, there was a 15 mm g radient across the aortic valve by hemodynamics on fluoroscopy. Echocardiography revealed a 20 to 25 mm gradient across the aortic valve with fully functional opening leaflets. At this time, it was decided that given the fact that the valve was at the annular level or just abov e it, that doing any post-dilatation would not increase the valve area. We decided to remove the wire . The right groin was closed with triple Perclose placement. Left groin was closed with 8-Khmer Ashley o-Seal. 6-Khmer sheath was removed with manual pressure. Patient tolerated the procedure well with n o complications. IMPRESSION: Successful placement of Medtronic CoreValve Evolut R 23 mm valve via the transfemoral ro koi. PLAN: The patient will be admitted to ICU. Further orders following clinical course. /[id number]/MODL
--- NOTE | 2017-05-09 17:23 | POSTANESTH ---
Post Anesthetic Evaluation Cardiovascular Status: Normal, Stable Respiratory Status: Normal, Stable Level of Consciousness/Mental Status: Can Participate in Eval Pain Control: Adequate, Prn Tx Ordered Nausea/Vomiting Control: Adequate, Prn Tx Ordered Complications Possibly Related to Anesthesia: None Noted
[2017-05-09] MEDS: oxyCODONE IR 5 MG TAB PO PRN (20:59)
[2017-05-09] MEDS: PRAVASTATIN SODIUM 20 MG TAB PO SCH (20:59)
[2017-05-10] MEDS: oxyCODONE IR 5 MG TAB PO PRN (02:25)
[2017-05-10 04:19] LABS: PLATELET COUNT 102 10^3/uL (150-400)
[2017-05-10 04:31] LABS: INR 1.1 (0.83-1.16); PROTIME(PATIENT) 14.4 SEC (12.0-15.0)
[2017-05-10] MEDS ORDERED: LIDO/EPI 1% **Not for Epidural 20 ML MDV NB ONE (06:45)
--- NOTE | 2017-05-10 06:58 | PDCARPN ---
Cardiology Progress Note Chief Complaint: SOB Assessment/Plan: Assessment: bAVR degeneration HF prior bMVR Plan: 05/09/17 07:01 BRITTANEY/cath shows severe bAVR disease no CAD Plan for TAVR ELVIS procedure today I have explained the risks/possible complications of the procedure to Prem, including bleeding, infection, stroke, and possible and both the patient and his family would like to proceed Prem had already been seen by two CT surgeons (Dr. Waterman and Keely) who deemed him a suitable candidate for TAVR 05/10/17 06:55 Doing well much less SOB left groin (small access side) has persistent small oozing.Hold ASA/plavix today , inject local lido/epi, hold pressure 15 minutes OOB when groin stable check echo reduce diuretics Subjective: doing well, c/o lack of sleep Time Spent With Patient: 25 min Objective: Vital Signs (8 Hrs) Temp Pulse Resp BP Pulse Ox 05/10/17 06:00 77 16 139/77 H 98 05/10/17 05:00 60 15 121/73 H 97 05/10/17 04:00 77 14 131/87 H 98 05/10/17 03:00 79 16 131/67 H 97 05/10/17 02:00 79 16 121/75 H 98 05/10/17 01:00 77 16 137/67 H 98 05/10/17 00:00 36.7 C 72 16 127/76 H 100 05/09/17 23:00 78 18 148/61 H 98 Intake/Output (24 Hrs) 05/09/17 05/10/17 05/11/17 05:59 05:59 05:59 Intake Total 300 750 Output Total 550 1500 Balance -250 -750 Intake: Oral (ml) 300 750 Output: Urine (ml) 550 1500 Urinal 550 1500 Other: Weight 84.822 kg Intake Quantity Yes Sufficient Number of Voids Toilet 1 Urinal 1 Result Diagrams: 05/10/17 04:10 05/10/17 04:10 - Physical Exam Constitutional: healthy appearing Eyes: PERRL Ears, Nose, Mouth, Throat: moist mucous membranes Cardiovascular: regular rate and rhythm Peripheral Pulses: 1+: femoral (R), femoral (L) Respiratory: clear to auscultate bilat Gastrointestinal: normoactive bowel sounds Genitourinary: no suprapubic tenderness Skin: no rashes, other (left groin oozing) Musculoskeletal: no muscular tenderness Neurologic: AAOx3 Psychiatric: cooperative ICD10 Worksheet Patient Problems: Problems Problem Status Onset Acute decompensated heart failure Acute
[2017-05-10] MEDS ORDERED: LIDO/EPI 1% **for epidural** 30 ML SDV ONE (07:44)
[2017-05-10] MEDS ORDERED: HYDROmorphone HCL/NS 0.5 MG/ML SYR IVP PRN (08:00)
[2017-05-10] MEDS ORDERED: CLOPIDOGREL BISULFATE 75 MG TAB PO SCH (09:00)
--- NOTE | 2017-05-10 09:13 | CPEKG ---
Heart Rate: 90 RR Interval: 667 P-R Interval: 240 QRSD Interval: 110 QT Interval: 400 QTC Interval: 490 P Milford: 74 QRS Milford: -44 T Wave Milford: 112 EKG Severity - ABNORMAL ECG - EKG Impression: SINUS RHYTHM EKG Impression: MULTIFORM VENTRICULAR PREMATURE COMPLEXES EKG Impression: FIRST DEGREE AV BLOCK EKG Impression: PROBABLE LEFT ATRIAL ABNORMALITY EKG Impression: LVH WITH IVCD, LAD AND SECONDARY REPOL ABNRM Electronically Signed By: Panda Montano 10-May-2017 11:48:18
[2017-05-10] MEDS: TAMSULOSIN HCL 0.4 MG CAP PO SCH (11:13)
[2017-05-10] MEDS: FUROSEMIDE 20 MG TAB PO SCH (11:13)
[2017-05-10] MEDS: POTASSIUM CL 10 MEQ TAB PO SCH (11:13)
--- NOTE | 2017-05-10 12:16 | ECHO ---
[email or web address] [address] [address] Main: [phone] Fax: Transthoracic Echocardiogram Name: DARIO HUGHES MR#: [id number] Study Date: 05/10/2017 Study Time: 10:15 AM Date of : 1940 Age: 77 year(s) Height: 170.2 cm (67 in.) Weight: 86.18 kg (190 lb.) BSA: 1.98 m2 Gender: Male Examination: Echo Indication: Post TAVR Image Quality: Contrast: Requested by: Lux Duarte BP: 132 mmHg/101 mmHg Heart Rate: Rhythm: Indication: Post TAVR Procedure Staff Motion Picture Camera Operator: Kate Gustafson RDCS Reading Physician: Lux Duarte MD Requesting Provider: Conclusions: Moderately dilated left ventricle. Mildly to moderately reduced systolic funtion. EF is 40 %. The left atrium is moderately to severely dilated. Mild mitral valve regurgitation is present. A bioprothetic mitral valve is in place. MV mean PG is 7mmHG.. There is no aortic valve regurgitation. Cor valve in place. AV max PG is 54mmHG. AV mean PG is 34mmHG. AV area is 2.25.. Moderate to severe tricuspid valve regurgitation. RVSP is 58mmHG.. Measurements: Chambers Valvular Assessment AV/MV Valvular Assessment TV/PV Normal Normal Normal Name Value Range Name Value Range Name Value Range IVSd (2D): 0.9 cm (0.6 cm-1.1 AV meanP mmHg ( - ) TR Vmax: 3.45 mm/s ( - ) cm) LVOT Vmax: 1.99 m/s (0.7 m/s-1.1 TR PGmax: 48 mmHg ( - ) LVDd (2D): 6.6 cm (4.2 cm-5.9 m/s) syst. PAP: 58 mmHg ( - ) cm) MV E Vmax: 1.79 m/s ( - ) LVPWd (2D): 1.1 cm (0.6 cm-1 MV A Vmax: 1.42 m/s ( - ) cm) MV E/A: 1.26 ( - ) LVOTd 2.3 cm 2.3 cm mm MV meanP mmHg ( - ) LVEF (MOD4): 40 % (>=55 %) MV PHT: 0.121 s ( - ) MVA (PHT): 1.8 s ( - ) Continued Measurements: Chambers Valvular Assessment AV/MV Valvular Assessment TV/PV Patient: DARIO HUGHES Study Date: 05/10/2017 Page 1 of 2 10:15 AM Name Value Name Value Name Value LADs: 6.4 cm MV VTI: 50.70 cm CVP (est.): 10 mmHg LADs Lon.6 cm LA Area: 35.2 cm2 Findings: Left Ventricle: Moderately dilated left ventricle. Mildly to moderately reduced systolic funtion. EF is 40 %. Right Ventricle: Normal size right ventricle. Left Atrium: The left atrium is moderately to severely dilated. Right Atrium: The right atrium is mildly dilated. Mitral Valve: Mild mitral valve regurgitation is present. A bioprothetic mitral valve is in place. MV mean PG is 7mmHG.. Aortic Valve: There is no aortic valve regurgitation. Cor valve in place. AV max PG is 54mmHG. AV mean PG is 34mmHG. AV area is 2.25.. Tricuspid Valve: Moderate to severe tricuspid valve regurgitation. RVSP is 58mmHG.. Pulmonic Valve: The pulmonic valve is normal in appearance. Moderate pulmonic valve regurgitation is noted. Pericardium: No pericardial effusion. (No Signature Object) Patient: DARIO HUGHES Study Date: 05/10/2017 Page 2 of 2 10:15 AM [id number]
[2017-05-10] MEDS ORDERED: TEMAZEPAM 15 MG CAP PO PRN (12:18)
--- NOTE | 2017-05-10 12:20 | HOSPPROG ---
Hospitalist Progress Note Assessment/Plan: * Acute on chronic systolic CHF - EF 40% -s/p IV lasix * Critical - s/p TAVR * Bioprosthetic MV * Troponin elevation -cardiac cath reportedly clean * BPH - flomax * Insomnia * element of PTSD * try resteril for a few days to get a little sleep Subjective: can't sleep d/t past trauma of PND Objective: Vital Signs Temp Pulse Resp BP Pulse Ox 36.9 C 79 20 132/79 H 94 05/10/17 12:00 05/10/17 12:00 05/10/17 12:00 05/10/17 12:00 05/10/17 12:00 Laboratory Results 05/10/17 04:10 05/10/17 04:10 05/09/17 05/10/17 05/11/17 05:59 05:59 05:59 Intake Total 300 750 Output Total 550 1500 Balance -250 -750 PT 14.4 SEC (12.0-15.0) 05/10/17 04:10 INR 1.10 (0.83-1.16) 05/10/17 04:10 - Physical Exam Constitutional: no apparent distress, appears nourished, not in pain Eyes: anicteric sclera, EOMI Ears, Nose, Mouth, Throat: moist mucous membranes, hearing normal Cardiovascular: regular rate and rhythym, no murmur, rub, or gallop, systolic murmur, No edema Respiratory: no respiratory distress, no rales or rhonchi, clear to auscultation Skin: warm Neurologic: AAOx3 Psychiatric: interacting appropriately, not anxious, not encephalopathic, thought process linear ICD10 Worksheet Patient Problems: Problems Problem Status Onset Acute decompensated heart failure Acute
--- NOTE | 2017-05-10 16:25 | ASMTCMCOM ---
CM Note CM Note Notes: Cardiac rehab is the only therapy ordered. CM available for any d/c needs that may arise. Date Signed: 05/10/2017 04:25 PM Electronically Signed By:Bianca Keys LCSW
[2017-05-10] MEDS: CARVEDILOL 3.125 MG TAB PO SCH (18:03)
[2017-05-10] MEDS: PRAVASTATIN SODIUM 20 MG TAB PO SCH (20:27)
[2017-05-11 04:59] LABS: PLATELET COUNT 91 10^3/uL (150-400)
[2017-05-11 05:06] LABS: INR 1.05 (0.83-1.16); PROTIME(PATIENT) 13.9 SEC (12.0-15.0)
--- NOTE | 2017-05-11 07:13 | PDCARPN ---
Cardiology Progress Note Chief Complaint: SOB Assessment/Plan: Assessment: bAVR degeneration HF prior bMVR Plan: 05/09/17 07:01 BRITTANEY/cath shows severe bAVR disease no CAD Plan for TAVR ELVIS procedure today I have explained the risks/possible complications of the procedure to Prem, including bleeding, infection, stroke, and possible and both the patient and his family would like to proceed Prem had already been seen by two CT surgeons (Dr. Waterman and Keely) who deemed him a suitable candidate for TAVR 05/10/17 06:55 Doing well much less SOB left groin (small access side) has persistent small oozing.Hold ASA/plavix today , inject local lido/epi, hold pressure 15 minutes OOB when groin stable check echo reduce diuretics 05/11/17 07:10 Doing very well EF still reduced on echo but pt feels fantastic d/c home today on current meds: coreg 3.125 mg po bid, lisinopril 2.5 mg po qd, lasix 20 mg po qd (no need for KCL), ASA, statin no plavix secondary to thrombocytopenia (chronic) f/u in 1 week Subjective: feels great Reviewed/Discussed With: multidisciplinary team Time Spent With Patient: 25 min Objective: Vital Signs (8 Hrs) Temp Pulse Resp BP Pulse Ox 05/11/17 04:00 37.3 C 71 12 130/84 H 94 05/10/17 23:14 36.9 C 70 12 111/84 H 97 Intake/Output (24 Hrs) 05/10/17 05/11/17 05/12/17 05:59 05:59 05:59 Intake Total 750 1010 Output Total 1500 800 Balance -750 210 Intake: Oral (ml) 750 1010 Output: Urine (ml) 1500 800 Urinal 1500 800 Other: Weight 84.822 kg Number of Voids Urinal 1 4 Result Diagrams: 05/11/17 04:09 05/10/17 04:10 - Physical Exam Constitutional: healthy appearing Eyes: PERRL Ears, Nose, Mouth, Throat: moist mucous membranes Cardiovascular: regular rate and rhythm, systolic murmur Peripheral Pulses: 1+: femoral (R), femoral (L) Respiratory: clear to auscultate bilat Gastrointestinal: normoactive bowel sounds Genitourinary: no suprapubic tenderness Skin: no rashes Musculoskeletal: no muscular tenderness Neurologic: AAOx3 ICD10 Worksheet Patient Problems: Problems Problem Status Onset Acute decompensated heart failure Acute
[2017-05-11 07:34] VITALS: RESP 16
--- NOTE | 2017-05-11 07:40 | GDS ---
[f rep st] DISCHARGE SUMMARY DISCHARGE DIAGNOSIS: Severe aortic insufficiency, aortic stenosis, with subsequent transcatheter aor tic valve replacement for bioprosthetic valve degeneration. Briefly, this is a 77-year-old male with history of prior bioprosthetic aortic valve and mitral valve replacements. The patient has been having worsening heart failure-like symptoms, and was found as a n outpatient to have severe aortic regurgitation, as well as severe aortic stenosis across the degene rated bioprosthetic aortic valve. The mitral valve appeared to be intact with only trivial to mild M R. The patient was admitted on 05/07/2017, for worsening heart failure symptoms. The patient underw ent successful transfemoral TAVR procedure on 05/09/2017, with a Medtronic CoreValve R 23 mm valve. The patient's initial mean gradient across his valve was approximately 80 mmHg, which was reduced to 30 mmHg post deployment of the valve. There was no AI noted post valve deployment. Befor e the TAVR was placed, there was severe wide-open AI. Postprocedure the patient has done fantastic, ambulating the halls with no shortness of breath. His repeat echo 24 hours post procedure did show E F that was still reduced at approximately 40% with no AI and the mean gradient of approximately 25-30 mmHg. The patient was started on low-dose Coreg, as well as lisinopril and kept on a low dose of La six. The patient does have a history of chronic thrombocytopenia with a platelet count in the 90s. He will be maintained on a baby aspirin alone at this point time. He is cleared for discharge today to follow up with us in the office in 1 week's time. /[id number]/MODL
[2017-05-11] MEDS: CARVEDILOL 3.125 MG TAB PO SCH (08:58)
[2017-05-11] MEDS: FUROSEMIDE 20 MG TAB PO SCH (08:59)
[2017-05-11] MEDS: TAMSULOSIN HCL 0.4 MG CAP PO SCH (09:00)
[2017-05-11] MEDS ORDERED: LISINOPRIL 2.5 MG TAB PO SCH (09:00)
[2017-05-11] MEDS ORDERED: ASPIRIN 81 MG CHEWABLE TAB PO SCH (09:00)
[2017-05-11 11:25] VITALS: BP 107/70; PULSE 48; TEMP 98; O2SAT 92
== END 2017-05-11 12:00 | disposition home or self-care (01) | DRG 266 ==
LOC: F2W 05-08 00:50 → OBSVTOIN 05-08 11:55 → F2N 05-09 07:47 → F2W 05-10 18:16
PROVIDERS: ADMIT Internal Medicine Cardiovascular Disease; ATTEND Internal Medicine Cardiovascular Disease
PROC: 02RF38Z Replacement of Aortic Valve with Zooplastic Tissue, Percutaneous Approach (ICD-10-PCS; principal; 2017-05-09)
DX: T82.857A Stenosis of other cardiac prosthetic devices, implants and grafts, initial encounter (principal); I35.2 Nonrheumatic aortic (valve) stenosis with insufficiency; Z00.6 Encounter for examination for normal comparison and control in clinical research program; I50.23 Acute on chronic systolic (congestive) heart failure; Z95.2 Presence of prosthetic heart valve; I10 Essential (primary) hypertension; G47.00 Insomnia, unspecified
CPT/HCPCS: 97161-GP; 97166-GO; 97530-GP; C1760; C1769; C1894; G8978-GP-CI; G8979-GP-CI; G8980-GP-CI; G8987-GO-CI; G8988-GO-CI; G8989-GO-CI; J0153; J0171; J0282; J0690; J1265; J1644; J1940; J2001; J2250; J2260; J2704; J2720; J2930; J3010; J3475; J7060; P9041; Q9967

== ENCOUNTER → 2017-06-12 | Outpatient (CLI) | payer OTHER | LOC: BHFA 11:30 | PROVIDERS: ATTEND Internal Medicine Cardiovascular Disease | DX: I35.0 Nonrheumatic aortic (valve) stenosis (principal); Z95.2 Presence of prosthetic heart valve ==